=== PATIENT | male | born 1985 | race Caucasian/White ===

== ENCOUNTER 2018-04-14 12:12 | Outpatient (CLI) | payer MEDICAID | END 2018-04-14 12:13 | disposition EMS.NT | LOC: EMS 12:12 | PROVIDERS: ATTEND Surgery | DX: S99.922A Unspecified injury of left foot, initial encounter (principal); W20.8XXA Other cause of strike by thrown, projected or falling object, initial encounter; Y92.69 Other specified industrial and construction area as the place of occurrence of the external cause; Y99.0 Civilian activity done for income or pay ==

== ENCOUNTER 2018-04-14 15:04 | Emergency (ER) | payer BC, MEDICAID ==
[2018-04-14] MEDS ORDERED: IBUPROFEN 800 MG TABLET PO STA (15:12)
--- NOTE | 2018-04-14 15:15 | ED Physician Documentation ---
History of Present Illness - Stated complaint Stated Complaint: L TOE INJURY - Chief complaint Chief Complaint: General - History obtained from History obtained from: Patient - History of Present Illness Timing: Today Pain level max: 6 Pain level now: 4 Improved by: rest Worsened by: walking - Additonal information Additional information: Patient is a 32-year-old male who presents to the emergency department with a left foot injury after dropping a 6 x 6 piece of wood on it at work today. Review of Systems Neurologic: denies: Focal weakness, Numbness PD PAST MEDICAL HISTORY - Past Medical History Past Medical History: No - Past Surgical History Past Surgical History: No - Present Medications Home Medications: Ambulatory Orders Medication Instructions Recorded Confirmed Buprenorphine HCl/Naloxone HCl 1 each SL 04/14/18 [Suboxone 4 mg-1 mg Sl Film] - Allergies Allergies/Adverse Reactions: Allergies Allergy/AdvReac Type Severity Reaction Status Date / Time No Known Drug Allergies Allergy Verified 04/14/18 15:11 - Living Situation Living Arrangement: reports: At home - Family History Family history: reports: Non contributory - Immunizations Immunizations are current?: Yes PD ED PE NORMAL - Vitals Vital signs reviewed: Yes - General General: Alert and oriented X 3, No acute distress - Extremities Extremities: Other (L foot - TTP over the dorsum of the foot. ecchymosis distal 4th and 5th MT. No deformity. ) - Neuro Neuro: Alert and oriented X 3 - Psych Psych: Normal mood, Normal affect Results - Vitals Vitals: Vital Signs - 24 hr 04/14/18 15:07 Temperature 37.3 C Heart Rate 72 Respiratory 18 Rate Blood Pressure 123/79 O2 Saturation 99 Oxygen O2 Source Room air - Rads (name of study) L foot xray Radiology: Prelim report reviewed, EMP read contemporaneously, See rad report ( Displaced fractures of the fifth distal phalanx. ) PD MEDICAL DECISION MAKING - ED course Complexity details: reviewed results, re-evaluated patient, considered differential, d/w patient ED course: Patient is a 32-year-old male with a left foot injury after dropping a piece of wood on it at work. Appears to have displaced fractures of the fifth distal phalanx. No nailbed injury. No subungual hematoma. Neurovascularly intact. Placed in a postoperative shoe. He is on Suboxone at home for pain. Patient counseled regarding signs and symptoms for which I believe and urgent re- evaluation would be necessary. Patient with good understanding of and agreement to plan and is comfortable going home at this time This document was made in part using voice recognition software. While efforts are made to proofread this document, sound alike and grammatical errors may occur. Departure - Departure Disposition: 01 Home, Self Care Clinical Impression: Toe fracture, left Qualifiers: Encounter type: initial encounter Toe: lesser toe Fracture type: closed Phalanx : distal Fracture alignment: displaced Qualified Code(s): S92.532A - Displaced fracture of distal phalanx of left lesser toe(s), initial encounter for closed fracture Condition: Good Instructions: ED Fx Toe Closed Follow-Up: Esme Reed ARNP [Primary Care Provider] - Within 1 week Comments: Return if you worsen. Continue your current medications. Wear the post-op shoe for comfort. You may bear weight as tolerated. Discharge Date/Time: 04/14/18 15:59
[2018-04-14 15:18] VITALS: BP 123/79
--- NOTE | 2018-04-14 15:38 | XRAY Report ---
EXAM: LEFT FOOT RADIOGRAPHY EXAM DATE: 04/14/2018 03:20 PM. CLINICAL HISTORY: 6 x 6 fell on foot. Pain. COMPARISON: None. TECHNIQUE: 3 views. FINDINGS: Bones: Displaced fractures of the fifth distal phalanx sparing the DIP joint. No other traumatic or d estructive bony abnormalities. Joints: Normal. No subluxations. Soft Tissues: Unremarkable. IMPRESSION: Displaced fractures of the fifth distal phalanx. [facility] Referring Provider Line: [phone] SITE ID: [id number]
--- NOTE | 2018-04-14 15:38 | XRAY Preliminary Report ---
Exam: XR FOOT 3 VIEW LT IMPRESSION: Displaced fractures of the fifth distal phalanx. [facility] SITE ID: [id number]
== END 2018-04-14 15:59 | disposition home or self-care (01) ==
LOC: ED 15:04
DX: S92.532A Displaced fracture of distal phalanx of left lesser toe(s), initial encounter for closed fracture (principal); W22.8XXA Striking against or struck by other objects, initial encounter; Y99.0 Civilian activity done for income or pay
CPT/HCPCS: 73630; 99283; A9270

== ENCOUNTER 2022-06-11 05:47 | Emergency (ER) | payer MEDICAID ==
[2022-06-11 05:56] VITALS: BP 118/65
[2022-06-11] MEDS ORDERED: SODIUM CHLORIDE 0.9% 1,000 ML IV STA (06:13)
[2022-06-11] MEDS ORDERED: KETOROLAC 15 MG/ML VIAL IVP STA (06:13)
[2022-06-11] MEDS ORDERED: METOCLOPRAMIDE 10 MG/2 ML VIAL IVP STA (06:13)
--- NOTE | 2022-06-11 06:13 | ED Physician Documentation ---
History of Present Illness - Stated complaint Stated Complaint: FEVER/VOMITING - Chief complaint Chief Complaint: General - History obtained from History obtained from: Patient - History of Present Illness Timing: Prior to arrival - Additonal information Additional information: 36-year-old male with no significant past medical history presents for fever, generalized headache, 2-3 episodes of emesis since 8:00 last night. Patient states that he is here today to make sure that he does not have COVID-19 because his mother's boyfriend is old and frail. No medications taken for symptoms. Patient states headache is typical for him when he gets sick. He states that a friend that he stayed with recently tested positive for the flu recently. Review of Systems Ten Systems: 10 systems reviewed and negative Constitutional: reports: Fever, Chills Eyes: denies: Loss of vision, Decreased vision, Photophobia Ears: denies: Loss of hearing, Ear pain, Drainage/discharge GI: reports: Vomiting. denies: Abdominal Pain, Abdominal Swelling, Nausea PD PAST MEDICAL HISTORY - Past Medical History Past Medical History: Yes - Past Surgical History Past Surgical History: Yes General: Colonoscopy - Present Medications Home Medications: Ambulatory Orders Medication Instructions Recorded Confirmed Buprenorphine HCl/Naloxone HCl 1 each SL 04/14/18 [Suboxone 4 mg-1 mg Sl Film] Ondansetron Odt [Zofran] 4 mg TL Q6H PRN #10 tablet 06/11/22 - Allergies Allergies/Adverse Reactions: Allergies Allergy/AdvReac Type Severity Reaction Status Date / Time No Known Drug Allergies Allergy Verified 06/11/22 05:57 - Social History Does the pt smoke?: Yes Smoking Status: Current every day smoker Does the pt drink ETOH?: Yes Does the pt have substance abuse?: No - Immunizations Immunizations are current?: No Immunizations: Other immun not current PD ED PE NORMAL - Vitals Vital signs reviewed: Yes - General General: Alert and oriented X 3, No acute distress, Well developed/nourished, Other (Hygiene poor) - HEENT HEENT: Atraumatic, EOMI, Ears normal - Neck Neck: Supple, no meningeal sign, No adenopathy, C-Spine cleared by NEXUS criteria - Cardiac Cardiac: RRR, No murmur, No rub, Strong equal pulses - Respiratory Respiratory: No respiratory distress, Clear bilaterally - Abdomen Abdomen: Soft, Non tender, Non distended, No organomegaly - Male Male : Deferred - Rectal Rectal: Deferred - Back Back: No CVA TTP, No spinal TTP - Derm Derm: Normal color, Warm and dry, No rash - Extremities Extremities: No deformity, No tenderness to palpate, Normal ROM s pain, No edema, No calf tenderness / cord - Neuro Neuro: Alert and oriented X 3, 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 parapertussis DNA (PCR) NOT DETECTED Nasal Coronavir 229E PCR NOT DETECTED Nasal Coronavir HKU1 PCR NOT DETECTED Nasal Coronavir NL63 PCR NOT DETECTED Nasal Coronavir OC43 PCR NOT DETECTED Nasal Enterovir/Rhinovir PCR NOT DETECTED Nasal Influenza B PCR NOT DETECTED Nasal Influenza A PCR NOT DETECTED Nasal Parainfluen 1 PCR NOT DETECTED Nasal Parainfluen 2 PCR NOT DETECTED Nasal Parainfluen 3 PCR NOT DETECTED Nasal Parainfluen 4 PCR NOT DETECTED Nasal RSV (PCR) NOT DETECTED Nasal B.pertussis DNA PCR NOT DETECTED Nasal C.pneumoniae (PCR) NOT DETECTED Slava Human Metapneumo PCR NOT DETECTED Nasal M.pneumoniae (PCR) NOT DETECTED Nasal SARS-CoV-2 (PCR) DETECTED A PD MEDICAL DECISION MAKING - ED course Complexity details: reviewed results, re-evaluated patient, considered differential, d/w patient ED course: Viral syndrome, patient here for help with his headache and to test for COVID- 19. Viral panel sent to lab, headache cocktail ordered. Patient reports feeling improved. COVID-19 positive. Discharged home with sup portive care precautions. Departure - Departure Disposition: 01 Home, Self Care Clinical Impression: Viral syndrome, Nausea & vomiting, COVID-19 Condition: Stable Instructions: ED Viral Syndrome Prescriptions: Ondansetron Odt [Zofran] 4 mg TL Q6H PRN #10 tablet PRN Reason: Nausea / Vomiting Comments: Drink plenty of fluids. Take Tylenol and Motrin as needed for headache or fever. You are being prescribed Zofran, please take this as needed up to 3 times a day for nausea and vomiting. This RX has been sent to [facility] in [place] Discharge Date/Time: 06/11/22 08:04
[2022-06-11] MEDS ORDERED: diphenhydrAMINE INJ 50 MG/ML VIAL IVP STA (06:14)
[2022-06-11 07:56] LABS: B. PARAPERTUSSIS- RESP PCR PAN NOT DETECTED; B. PERTUSSIS- RESP PCR PANEL NOT DETECTED; C. PNEUMONIAE- RESP PCR PANEL NOT DETECTED; CORONAVIRUS 229E-RESP PCR NOT DETECTED; CORONAVIRUS HKU1-RESP PCR NOT DETECTED; CORONAVIRUS NL63-RESP PCR NOT DETECTED; CORONAVIRUS OC43-RESP PCR NOT DETECTED; HUMAN METAPNEUMOVIRUS NOT DETECTED; INFLUENZA A- RESP PCR PANEL NOT DETECTED; INFLUENZA B - RESP PCR PANEL NOT DETECTED; M. PNEUMONIAE- RESP PCR PANEL NOT DETECTED; PARAINFLUENZA VIRUS 1 NOT DETECTED; PARAINFLUENZA VIRUS 2 NOT DETECTED; PARAINFLUENZA VIRUS 3 NOT DETECTED; PARAINFLUENZA VIRUS 4 NOT DETECTED; RHINOVIRUS/ENTEROVIRUS NOT DETECTED; RSV- RESP PCR PANEL NOT DETECTED
[2022-06-11 07:58] LABS: SARS-CoV-2 -RESP PCR PANEL DETECTED
== END 2022-06-11 08:04 | disposition home or self-care (01) ==
LOC: ED 05:47
DX: U07.1 COVID-19 (principal); F17.200 Nicotine dependence, unspecified, uncomplicated
CPT/HCPCS: 36415; 87633; 96374; 96375; 99282; 99283; J1200; J2765